=== PATIENT | male | born 1950 | race Caucasian/White ===

== ENCOUNTER 2020-08-21 18:01 | Emergency (ER) | payer MEDICARE, OTHER ==
[~2020-08-21] VITALS: Ht 177.8 cm; Wt 87.3 kg
[2020-08-21 18:10] VITALS: Ht 177.8 cm; Wt 87.3 kg
[2020-08-21] MEDS ORDERED: OMEGA-3100 MG PO (18:13)
[2020-08-21] MEDS ORDERED: BAYER CHEWABLE81 MG PO (18:13)
[2020-08-21] MEDS ORDERED: MULTI-DAY VITAM1 TAB PO (18:13)
[2020-08-21] MEDS ORDERED: PEPCID40 MG PO (18:13)
[2020-08-21] MEDS ORDERED: COZAAR100 MG PO (18:14)
[2020-08-21] MEDS ORDERED: GLUCOPHAGE500 MG PO (18:14)
[2020-08-21] MEDS ORDERED: TRIAMTERENE-HC1 EAC3 PO (18:14)
[2020-08-21] MEDS ORDERED: LIPITOR40 MG PO (18:14)
[2020-08-21] MEDS ORDERED: BYSTOLIC20 MG PO (18:15)
[2020-08-21] MEDS ORDERED: OMEPRAZOLE20 M1 PO (18:15)
[2020-08-21 20:00] VITALS: BP 122/77
== END 2020-08-21 20:00 | disposition home or self-care (01) ==
LOC: D.ER 18:01
DX: S01.91XA Laceration without foreign body of unspecified part of head, initial encounter (principal); W01.0XXA Fall on same level from slipping, tripping and stumbling without subsequent striking against object, initial encounter; E11.9 Type 2 diabetes mellitus without complications; Z79.84 Long term (current) use of oral hypoglycemic drugs; I10 Essential (primary) hypertension; Z95.1 Presence of aortocoronary bypass graft; I25.10 Atherosclerotic heart disease of native coronary artery without angina pectoris; K21.9 Gastro-esophageal reflux disease without esophagitis